=== PATIENT | female | born 1985 | race Caucasian/White ===

== ENCOUNTER 2016-10-11 16:29 | Observation (INO) ==
[2016-10-11] MEDS ORDERED: Vancomycin 1,000 MG in D5% in Water 250 ML IVPB ONE (17:32)
[2016-10-11] MEDS ORDERED: Ciprofloxacin/Dex *EAR* Susp 7.5 ML BOTTLE LEFT EAR ONE (17:36)
[2016-10-11] MEDS ORDERED: CloNIDine Patch 0.1 MG PATCH (WEEKLY) TD SCH (17:45)
[2016-10-11 18:44] LABS: Basophils % 0.5 %; Eosinophils # 0.1 K/mcL (0.0-0.6); Eosinophils % 1.3 %; Hematocrit 35.6 % (35.3-44.9); Hemoglobin 11.5 g/dL (11.5-15.4); Immature Granulocytes % 0.3 % (0-4); Lymphocytes # 2.7 K/mcL (0.6-4.6); Lymphocytes % 34.3 %; Mean Corpuscular HGB Conc 32.3 g/dL (31.6-35.5); Mean Corpuscular Hemoglobin 27.6 pg (28.0-33.3); Mean Corpuscular Volume 85.4 fL (83.0-100.0); Mean Platelet Volume 8.9 fL (9.4-12.4); Monocytes # 0.5 K/mcL (0.0-1.3); Monocytes % 6.6 %; Neutrophils # 4.6 K/mcL (1.6-8.9); Platelet Count 298 K/mcL (140-400); Red Blood Count 4.17 M/mcL (3.82-4.97); Red Cell Distribution Width 14.5 % (11.5-14.5)
[2016-10-11 18:59] LABS: Alanine Aminotransferase 16 Units/L (0-55); Albumin 2.9 g/dL (3.5-5.0); Albumin/Globulin Ratio 0.6 (1.1-2.2); Alkaline Phosphatase 77 Units/L (38-126); Aspartate Amino Transferase 17 Units/L (5-34); BUN/Creatinine Ratio 15 (6-26); Bilirubin,Total 0.4 mg/dL (0.2-1.2); Blood Urea Nitrogen 12 mg/dL (7-20); Calcium 9.2 mg/dL (8.6-10.8); Carbon Dioxide 27 mEq/L (19-29); Chloride 101 mEq/L (98-109); Glucose 106 mg/dL (70-99); Osmolality,Calculated 284 (280-300); Potassium 3.5 mEq/L (3.5-4.5); Sodium 137 mEq/L (136-145); Total Protein 7.9 g/dL (6.0-8.3); eGFR For African Americans > 60 (> 60); eGFR For Non-African Americans > 60 (> 60)
[2016-10-11 19:09] LABS: Large Platelets Present (Not Present); Platelet Estimate Normal (Normal); Reactive Lymphocytes Present (Not Present)
[2016-10-11] MEDS ORDERED: Haloperidol Lactate 5 MG/ML VIAL IVP ONE (19:22)
[2016-10-11] MEDS ORDERED: *HR* Ketamine 500 MG/5 ML MDV IVP ONE (20:04)
[2016-10-11] MEDS ORDERED: Ziprasidone injection 20 MG/ML VIAL IM ONE (20:07)
[2016-10-11] MEDS ORDERED: Ketamine *HR* 500 MG/10 ML MDV IVP ONE (20:30)
[2016-10-11] MEDS ORDERED: Piperacillin/Tazobactam 4.5 GM in D5% in Water (Mini-Bag+) 100 ML IVPB ONE (21:06)
[2016-10-11] MEDS ORDERED: 0.9 % Sodium Chloride 1,000 ML IVC SCH ×2 (21:15→22:00)
[2016-10-11] MEDS ORDERED: Naloxone 0.4 MG/ML INJ IVP PRN (21:56)
[2016-10-11] MEDS ORDERED: Mag Hydrox/Al Hydrox/Simeth 30 ML UDC PO PRN (21:56)
[2016-10-11] MEDS ORDERED: Acetaminophen 325 MG TABLET PO PRN (21:56)
[2016-10-11] MEDS ORDERED: traZODone 50 MG TABLET PO SCH (22:00)
[2016-10-11] MEDS ORDERED: Vancomycin 750 MG in D5% in Water 250 ML IVPB SCH (22:00)
[2016-10-11] MEDS ORDERED: Ondansetron ODT 4 MG TAB.RAPDIS SL PRN (22:02)
[2016-10-11] MEDS ORDERED: *HR* LORazepam 1 MG TABLET PO PRN (22:11)
--- NOTE | 2016-10-11 22:35 | Emergency Department Note ---
Disposition Clinical Impression: Drug abuse Cellulitis Qualifiers: Site of cellulitis: buttock Qualified Code(s): L03.317 - Cellulitis of buttock Disposition: Admitted As Inpatient General Adult HPI - General Chief complaint: ED Wound/Laceration Stated complaint: Abscess on buttocks Time Seen by Provider: 10/11/16 16:57 Source: patient Limitations: no limitations Nursing Notes Reviewed: Yes Vital Signs Reviewed: Yes - History of Present Illness HPI Narrative: This is a 30-year-old female with a history of significant IV drug abuse who presents with concern for inner thigh abscess. She has multiple track rodriguez on her arm. She has secondary complaints of falling several days ago resulting in multiple abrasions to the buttocks as well as extremities. She appears anxious , multiple track rodriguez. Denies fever, chills. She is actually squeezing a small area of folliculitis on her suprapubic area when I walked into the room. She admits having abscess in the past. She provided a history of taking Suboxone from her father and attempt to get clean as well as using Phenergan from her . Pain Scale: 5 - Related Data Home Medications Medication Instructions Recorded Confirmed Phenytoin ER [Dilantin ER] 100 mg PO TID 10/11/16 10/11/16 Trazodone HCl 300 mg PO HS 10/11/16 10/11/16 Allergies Allergy/AdvReac Type Severity Reaction Status Date / Time tramadol Allergy Swelling Verified 10/09/16 05:34 of Lip/Tongue/Throat naproxen AdvReac See Verified 10/09/16 05:37 Comments All systems ED: reviewed and negative except as stated. Past Medical History - Past Medical History Medical history: Reports: no medical history Surgical history: Reports: no surgical history Psychiatric history: Reports: no psych history VEGETABLE PICKER history: Reports: bilateral tubal ligation - Social History Smoking Status: Current every day smoker Alcohol use: Reports: none Drug use: Reports: marijuana Physical Exam - General Limitations: no limitations General appearance: alert, in no apparent distress - Eye Eye exam: Present: normal appearance - ENT ENT exam: normal exam, normal oropharynx - Neck Neck exam: Present: normal inspection, full ROM - Chest Chest inspection: Present: normal inspection - Respiratory Respiratory exam: Present: normal lung sounds bilaterally - Cardiovascular Cardiovascular exam: Present: regular rate, normal rhythm - Abdominal Exam Abdominal exam: Present: soft, Non-Tender - Back Exam Back exam: Present: normal inspection - Neurological Exam Neurological exam: Present: alert, oriented X3, CN II-XII intact - Psychiatric Psychiatric exam: Present: normal affect, normal mood - Skin Skin exam: Present: warm, dry - Other Other exam information: Multiple abrasions to the buttocks bilaterally. Tract rodriguez on the arms laterally. There are scratch rodriguez to the left and right inner upper extremities. There is abrasions on the knees bilaterally. There is abrasions on the elbows bilaterally. There is a rather large indurated area in the perineum. Course Vital Signs Temperature 98.1 F 10/11/16 16:30 Pulse Rate 78 10/11/16 16:30 Respiratory Rate 16 10/11/16 16:30 Blood Pressure 119/73 10/11/16 16:30 O2 Sat by Pulse Oximetry 97 10/11/16 16:30 Temperature 98.1 F 10/11/16 16:30 Pulse Rate 72 10/11/16 21:00 Respiratory Rate 16 10/11/16 21:00 Blood Pressure 115/78 10/11/16 21:00 O2 Sat by Pulse Oximetry 98 10/11/16 21:00 Oxygen Delivery Oxygen Delivery Room Air Medical Decision Making - MDM Narrative Medical decision making narrative: This is a area of cellulitis in the perineum. There is significant induration but no fluctuance. I did order a CT scan but ultimately she refused IV contrast. There is no evidence of drainable abscess. Vancomycin and Zosyn were initiated. Cultures were sent. The patient initially told me that she was in remission from narcotic dependency but then later told me that she was using IV heroin. She became anxious, agitated, was irritable and abusive towards nursing staff. She wanted to leave and get a cigarette. I told her if she left she would be discharged with removal of her intravenous as she was a high risk for exiting the emergency department with intravenous access in place. I did attempt to try to calm her nerves and suppress her feelings of opiate dependency with both clonidine and Phenergan however this was unsuccessful. After discussion with the patient she was given Haldol but this did not seem to improve her symptoms of anxiety and agitation. I then gave her Geodon which again did not seem to suppress her feelings of anxiety. I then provided ketamine which improved her pain and anxiety. She will be admitted to the hospital for evaluation of cellulitis. It is likely that she will elope at some point given her overwhelming anxiety here in the emergency department. She is currently agreeable to admission. Her wounds are cleansed with chlorhexidine. Bactroban was placed. She had secondary findings of acute otitis externa of the left ear. A wick was placed by the resident with my supervision. This was filled with Ciprodex. She will need continuation of Ciprodex treatment as an inpatient. - Medical Records Medical records reviewed: Yes I reviewed the patient's medical records. - Lab Data Lab results reviewed: Yes I reviewed the patient's lab results. Result diagrams: 10/11/16 18:20 10/11/16 18:20 Lab Results 10/11/16 10/11/16 10/11/16 Range/Units 18:20 18:20 18:20 WBC 8.0 (4.3-11.1) K/mcL RBC 4.17 (3.82-4.97) M/mcL Hgb 11.5 (11.5-15.4) g/dL Hct 35.6 (35.3-44.9) % MCV 85.4 (83.0-100.0) fL MCH 27.6 L (28.0-33.3) pg MCHC 32.3 (31.6-35.5) g/dL RDW 14.5 (11.5-14.5) % Plt Count 298 (140-400) K/mcL MPV 8.9 L (9.4-12.4) fL Immature Gran % 0.3 (0-4) % Seg Neutrophils % 57.0 % Lymphocytes % 34.3 % Monocytes % 6.6 % Eosinophils % 1.3 % Basophils % 0.5 % Neutrophils # 4.6 (1.6-8.9) K/mcL Lymphocytes # 2.7 (0.6-4.6) K/mcL Monocytes # 0.5 (0.0-1.3) K/mcL Eosinophils # 0.1 (0.0-0.6) K/mcL Basophils # 0.0 (0.0-0.2) K/mcL Reactive Lymphocytes Present A (Not Present) Platelet Estimate Normal (Normal) Large Platelets Present A (Not Present) Sodium 137 (136-145) mEq/L Potassium 3.5 (3.5-4.5) mEq/L Chloride 101 (98-109) mEq/L Carbon Dioxide 27 (19-29) mEq/L BUN 12 (7-20) mg/dL Creatinine 0.81 (0.57-1.11) mg/dL Est GFR ( Amer) > 60 (> 60) Est GFR (Non-Af Amer) > 60 (> 60) BUN/Creatinine Ratio 15 (6-26) Glucose 106 H (70-99) mg/dL Calculated Osmolality 284 (280-300) Lactic Acid (0.5-2.2) mmol/L Calcium 9.2 (8.6-10.8) mg/dL Total Bilirubin 0.4 (0.2-1.2) mg/dL AST 17 (5-34) Units/L ALT 16 (0-55) Units/L Alkaline Phosphatase 77 (38-126) Units/L Serum Total Protein 7.9 (6.0-8.3) g/dL Albumin 2.9 L (3.5-5.0) g/dL Globulin 5.0 H (2.4-3.5) g/dL Albumin/Globulin Ratio 0.6 L (1.1-2.2) Serum , Qual Negative (Negative) 10/11/16 Range/Units 21:20 WBC (4.3-11.1) K/mcL RBC (3.82-4.97) M/mcL Hgb (11.5-15.4) g/dL Hct (35.3-44.9) % MCV (83.0-100.0) fL MCH (28.0-33.3) pg MCHC (31.6-35.5) g/dL RDW (11.5-14.5) % Plt Count (140-400) K/mcL MPV (9.4-12.4) fL Immature Gran % (0-4) % Seg Neutrophils % % Lymphocytes % % Monocytes % % Eosinophils % % Basophils % % Neutrophils # (1.6-8.9) K/mcL Lymphocytes # (0.6-4.6) K/mcL Monocytes # (0.0-1.3) K/mcL Eosinophils # (0.0-0.6) K/mcL Basophils # (0.0-0.2) K/mcL Reactive Lymphocytes (Not Present) Platelet Estimate (Normal) Large Platelets (Not Present) Sodium (136-145) mEq/L Potassium (3.5-4.5) mEq/L Chloride (98-109) mEq/L Carbon Dioxide (19-29) mEq/L BUN (7-20) mg/dL Creatinine (0.57-1.11) mg/dL Est GFR ( Amer) (> 60) Est GFR (Non-Af Amer) (> 60) BUN/Creatinine Ratio (6-26) Glucose (70-99) mg/dL Calculated Osmolality (280-300) Lactic Acid 0.7 (0.5-2.2) mmol/L Calcium (8.6-10.8) mg/dL Total Bilirubin (0.2-1.2) mg/dL AST (5-34) Units/L ALT (0-55) Units/L Alkaline Phosphatase (38-126) Units/L Serum Total Protein (6.0-8.3) g/dL Albumin (3.5-5.0) g/dL Globulin (2.4-3.5) g/dL Albumin/Globulin Ratio (1.1-2.2) Serum , Qual (Negative)
--- NOTE | 2016-10-11 22:46 | Internal Med History&Physical ---
Date of Encounter: 10/11/16 Time of Encounter: 22:14 Assessment and Plan (1) Cellulitis Current visit: Yes Status: Acute Patient presents with "knot" on right buttock, worsening over the last month. She also reports chills, sweats and nausea. She is afebrile and WBC is normal at 8.0. Pelvis CT shows cellulitis of right greater than left gluteal region, no evidence of abscess, mild inflammatory phlegmon in subcutaneous soft tissue. IV fluids 0.9NS at 75mL/hr Zosyn and Vancomycin initiated in ED, continue zosyn and doxycycline. tylenol and toradol prn for pain. Qualifiers: Site of cellulitis: buttock Qualified Code(s): L03.317 - Cellulitis of buttock (2) Heroin abuse Current visit: Yes Status: Acute Patient reports using heroin today. She became agitated and anxious in the ED, likely related to withdrawal, and was given haldol, geodon, and ketamine. She was calm on my assessment. IV fluids 0.9NS at 75mL/hr Zofran PRN for nausea Ativan PRN for anxiety and agitation No narcotics ordered. Narcan ordered PRN [facility] consultation (3) Seizure disorder Current visit: Yes Status: Acute Patient with history of seizure disorder. Continue home dose of dilantin. (4) Otitis externa Current visit: Yes Status: Acute Patient with left otitis externa. Ciprodex drops. Qualifiers: Otitis externa type: unspecified type Laterality: left Chronicity: acute Qualified Code(s): H60.502 - Unspecified acute noninfective otitis externa, left ear (5) Smoker Current visit: Yes Status: Acute Patient reports she smokes 1.5 PPD, not ready to quit. Nicotine patch ordered. (6) DVT prophylaxis Current visit: Yes Status: Acute Up ad huey anti-embolic stockings lovenox 40mg sQ daily. Internal Medicine - H&P: HPI Chief complaint: sore on buttocks Admitted From: Emergency Dept Plans for Post Hospital Care: Home History of present illness: Ms. Alas is a 30 year old female with opioid and heroin addiction, seizure disorder, acid reflux presented to the emergency department today with complaints of a sore or "knot" on her buttocks. She reports it has been sore for about 1 month and getting worse. She reports chills, sweats and nausea for about a week. She denies any headache, lightheadedness, chest pain, palpitations, shortness of breath. She denies any dysuria, diarrhea, abnormal vaginal discharge, or pain during intercourse. She reports she uses heroin and last use was today. ER reports she became very agitated and anxious and she had to be given haldol, geodon, ketamine and clonidine in order to calm down, likely related to withdrawal. Evaluation in the ER included a pelvis CT which showed cellulitis of the right greater than left gluteal region. No evidence of abscess. Mild inflammatory phlegmon in the subcutaneous soft tissue. WBC normal at 8.0. Patient afebrile and normal vitals. Blood cultures were sent and patient started on vanc and zosyn. On exam, patient alert and oriented in no distress. Heart had regular rate and rhythm, lungs clear to auscultation bilaterally. On her right gluteal area, she had some erythema and a small 1cm sore. She had scrapes with scabs all over her body. Past Med Surg Social Fam HX - Past Medical History Medical history: seizures Psychiatric history: no psych history - Past Surgical History Surgical History: no surgical history, other (tubal ligation, deviated septum) - Social History Smoking Status: Current every day smoker Packs per day: 1.5 Alcohol use: none Drug use: marijuana, IVDU - Family History Mother Living Status: Age at : 47 Internal Medicine - H&P: Meds Phenytoin ER [Dilantin ER] 100 mg PO TID 10/11/16 [History] Trazodone HCl 300 mg PO HS 10/11/16 [History] Allergies tramadol Allergy (Verified 10/09/16 05:34) Swelling of Lip/Tongue/Throat naproxen Adverse Reaction (Verified 10/09/16 05:37) See Comments states increases HR All Systems PM: A 10-system review of systems was performed and is negative for pertinent findings except as documented above in the HPI. - Constitutional Constitutional: chills, excessive sweating, no fever(s), no night sweats - EENT Eyes: no change in vision, no discharge, no pain, no photophobia Ears: no ear discharge, no ear pain, no tinnitus Nose, mouth and throat: no dysphagia, no nasal discharge, no neck pain, no sore throat - Cardiovascular Cardiovascular ROS IM: no chest pain, no diaphoresis, no dyspnea, no lightheadedness, no palpitations, no syncope - Respiratory Respiratory: no cough, no dyspnea, no wheezing, no excessive phlegm production - Gastrointestinal Gastrointestinal: nausea, no abdominal pain, no diarrhea, no hematemesis, no hematochezia, no melena, no vomiting - Genitourinary Genitourinary: no change in urinary stream, no dysuria, no flank pain, no hematuria - Musculoskeletal Musculoskeletal ROS IM: no numbness, no tingling - Integumentary Integumentary IM: sores, no rash, no unusual bruising - Neurological Neurological ROS: no confusion, no convulsions, no focal weakness, no numbness, no tingling, no tremor(s) - Hematologic/Lymphatic Hematologic/Lymphatic: no easy bruising - Constitutional Vitals: Temp Pulse Resp BP Pulse Ox 98.1 F 72 16 115/78 98 10/11/16 16:30 10/11/16 21:00 10/11/16 21:00 10/11/16 21:00 10/11/16 21:00 General appearance: Present: A&O X 3, no acute distress - Head Head exam: Present: atraumatic, normocephalic - Eye Eye exam: Present: PERRL, conjuntiva pink, sclera anicteric Pupils: Present: PERRL - Neck Neck exam general surgery: Present: supple, trachea midline. Absent: lymphadenopathy - Respiratory Respiratory exam: Present: CTAB. Absent: accessory muscle use, rales, rhonchi, wheezes - Cardiovascular Cardiovascular exam: Present: RRR, +S1, +S2. Absent: diastolic murmur, gallop, rubs, systolic murmur - GI/Abdominal GI/Abdominal exam: Present: normal bowel sounds, soft, no peritoneal signs. Absent: distended, tenderness - Extremities Exam Extremities exam: Present: warm, radial pulses palpable and symetrical. Absent : calf tenderness, cyanotic, pedal edema - Neurological Exam Neurological exam: Present: CN II-XII intact, oriented X3, no focal deficits. Absent: facial droop, speech deficit - Skin Skin exam: Present: abrasion (diffuse), dry Additional comments: on right gluteal area, erythema and 1cm sore. Internal Med - H&P Results - Labs CBC & Chem 7: 10/11/16 18:20 10/11/16 18:20 Labs: All Lab Results (24 Hours) 10/11/16 10/11/16 10/11/16 Range/Units 18:20 18:20 18:20 WBC 8.0 (4.3-11.1) K/mcL RBC 4.17 (3.82-4.97) M/mcL Hgb 11.5 (11.5-15.4) g/dL Hct 35.6 (35.3-44.9) % MCV 85.4 (83.0-100.0) fL MCH 27.6 L (28.0-33.3) pg MCHC 32.3 (31.6-35.5) g/dL RDW 14.5 (11.5-14.5) % Plt Count 298 (140-400) K/mcL MPV 8.9 L (9.4-12.4) fL Immature Gran % 0.3 (0-4) % Seg Neutrophils % 57.0 % Lymphocytes % 34.3 % Monocytes % 6.6 % Eosinophils % 1.3 % Basophils % 0.5 % Neutrophils # 4.6 (1.6-8.9) K/mcL Lymphocytes # 2.7 (0.6-4.6) K/mcL Monocytes # 0.5 (0.0-1.3) K/mcL Eosinophils # 0.1 (0.0-0.6) K/mcL Basophils # 0.0 (0.0-0.2) K/mcL Reactive Lymphocytes Present A (Not Present) Platelet Estimate Normal (Normal) Large Platelets Present A (Not Present) Sodium 137 (136-145) mEq/L Potassium 3.5 (3.5-4.5) mEq/L Chloride 101 (98-109) mEq/L Carbon Dioxide 27 (19-29) mEq/L BUN 12 (7-20) mg/dL Creatinine 0.81 (0.57-1.11) mg/dL Est GFR ( Amer) > 60 (> 60) Est GFR (Non-Af Amer) > 60 (> 60) BUN/Creatinine Ratio 15 (6-26) Glucose 106 H (70-99) mg/dL Calculated Osmolality 284 (280-300) Lactic Acid (0.5-2.2) mmol/L Calcium 9.2 (8.6-10.8) mg/dL Total Bilirubin 0.4 (0.2-1.2) mg/dL AST 17 (5-34) Units/L ALT 16 (0-55) Units/L Alkaline Phosphatase 77 (38-126) Units/L Serum Total Protein 7.9 (6.0-8.3) g/dL Albumin 2.9 L (3.5-5.0) g/dL Globulin 5.0 H (2.4-3.5) g/dL Albumin/Globulin Ratio 0.6 L (1.1-2.2) Serum , Qual Negative (Negative) 10/11/16 Range/Units 21:20 WBC (4.3-11.1) K/mcL RBC (3.82-4.97) M/mcL Hgb (11.5-15.4) g/dL Hct (35.3-44.9) % MCV (83.0-100.0) fL MCH (28.0-33.3) pg MCHC (31.6-35.5) g/dL RDW (11.5-14.5) % Plt Count (140-400) K/mcL MPV (9.4-12.4) fL Immature Gran % (0-4) % Seg Neutrophils % % Lymphocytes % % Monocytes % % Eosinophils % % Basophils % % Neutrophils # (1.6-8.9) K/mcL Lymphocytes # (0.6-4.6) K/mcL Monocytes # (0.0-1.3) K/mcL Eosinophils # (0.0-0.6) K/mcL Basophils # (0.0-0.2) K/mcL Reactive Lymphocytes (Not Present) Platelet Estimate (Normal) Large Platelets (Not Present) Sodium (136-145) mEq/L Potassium (3.5-4.5) mEq/L Chloride (98-109) mEq/L Carbon Dioxide (19-29) mEq/L BUN (7-20) mg/dL Creatinine (0.57-1.11) mg/dL Est GFR ( Amer) (> 60) Est GFR (Non-Af Amer) (> 60) BUN/Creatinine Ratio (6-26) Glucose (70-99) mg/dL Calculated Osmolality (280-300) Lactic Acid 0.7 (0.5-2.2) mmol/L Calcium (8.6-10.8) mg/dL Total Bilirubin (0.2-1.2) mg/dL AST (5-34) Units/L ALT (0-55) Units/L Alkaline Phosphatase (38-126) Units/L Serum Total Protein (6.0-8.3) g/dL Albumin (3.5-5.0) g/dL Globulin (2.4-3.5) g/dL Albumin/Globulin Ratio (1.1-2.2) Serum , Qual (Negative) - Diagnostic Studies CT scan - pelvis Additional comments: Pelvis CT 10/11/16 17:32 IMPRESSION: 1. Cellulitis of the right greater than left gluteal region. 2. No evidence of abscess. Mild inflammatory phlegmon in the subcutaneous soft tissue. 3. Incidental left ovarian cyst. Recommendations below. D/ / Steffen Burr MD / Steffen Burr MD Interpreting Provider: Steffen Burr MD
[2016-10-11] MEDS ORDERED: Ketorolac 30 MG/ML VIAL IVP PRN (22:55)
--- NOTE | 2016-10-11 23:06 | Event Note ---
Date of Encounter: 10/11/16 Time of Encounter: 22:00 Patient evaluated along with Nurse Practitioner and I agree with detailed assessment and plan per MECHANICAL MANUFACTURING ENGINEER notes; 30 year old female with h/o- IVDU, seizure disorder, is admitted with c/o- right gluteal pain, subjective chills and feeling ill. She is noted to have a small phlegmon/no acute abscess in B/L gluteal areas, right>left on CT pelvis. She received IV Vancomycin and Zosyn in the ER along with one time doses of Ketamine, Ziprasidone, Ativan to calm her down as she reportedly wanted to use the restroom to shoot IV drugs and/or smoke. Patient seen and examined at bedside. Alert and oriented but not interested in providing any history, uncooperative in general, to physical examination. Chest- S1, S2 heard, RRR, lungs are clear to auscultation She only let me inspect her right gluteal area, with small 1-2cm erythematous area, tender; no fluctuant swelling; Noted to have multiple track rodriguez all over her body. B/L gluteal cellulitis/phlegmon- Patient has almost 1-month h/o- symptoms, worsening for the last few days. No documented fever, tachycardia, hypotension; lactic acid normal. Continue IV hydration and IV antibiotics- Zosyn and Doxycycline. Supportive care. Pain control with PRN Tylenol and IV Toradol; avoid narcotics. IV drug abuse- has not provided urine sample for urine drug screen. Supportive care with PRN Zofran, Ativan and Tylenol. director of home health services consult for safe discharge.
[2016-10-11] MEDS: Nicotine 21 MG PATCH.TD24 TD SCH (23:55)
[2016-10-12 04:29] LABS: Basophils % 0.3 %; Eosinophils # 0.1 K/mcL (0.0-0.6); Eosinophils % 1.5 %; Hematocrit 34.1 % (35.3-44.9); Hemoglobin 10.9 g/dL (11.5-15.4); Immature Granulocytes % 0.3 % (0-4); Lymphocytes # 2.5 K/mcL (0.6-4.6); Lymphocytes % 34.8 %; Mean Corpuscular Hemoglobin 27.3 pg (28.0-33.3); Mean Corpuscular Volume 85.5 fL (83.0-100.0); Mean Platelet Volume 8.8 fL (9.4-12.4); Monocytes # 0.5 K/mcL (0.0-1.3); Monocytes % 7.2 %; Neutrophils # 4.1 K/mcL (1.6-8.9); Platelet Count 285 K/mcL (140-400); Red Blood Count 3.99 M/mcL (3.82-4.97); Red Cell Distribution Width 14.4 % (11.5-14.5); Segmented Neutrophils % 55.9 %
[2016-10-12 04:45] LABS: BUN/Creatinine Ratio 9 (6-26); Blood Urea Nitrogen 7 mg/dL (7-20); Calcium 8.6 mg/dL (8.6-10.8); Carbon Dioxide 23 mEq/L (19-29); Chloride 111 mEq/L (98-109); Glucose 98 mg/dL (70-99); Osmolality,Calculated 292 (280-300); Potassium 3.9 mEq/L (3.5-4.5); Sodium 142 mEq/L (136-145); eGFR For African Americans > 60 (> 60); eGFR For Non-African Americans > 60 (> 60)
[2016-10-12 05:07] LABS: Reactive Lymphocytes Present (Not Present)
[2016-10-12 05:08] LABS: Platelet Clumps Few (Not Present)
[2016-10-12] MEDS ORDERED: Vancomycin 1,000 MG in D5% in Water 250 ML IVPB SCH (06:00)
[2016-10-12] MEDS ORDERED: Doxycycline 100 MG in 0.9 % Sodium Chloride Mini Bag 100 ML IVPB SCH (06:00)
[2016-10-12] MEDS ORDERED: Piperacillin/Tazobactam 3.375 GM in D5% in Water (Mini-Bag+) 100 ML IVPB SCH (06:00)
[2016-10-12] MEDS: *HR* Enoxaparin 40 MG/0.4 ML SYRINGE SQ SCH ×2 (06:07→06:40)
[2016-10-12 06:34] VITALS: BP 104/63
[2016-10-12] MEDS ORDERED: Famotidine 20 MG TABLET PO SCH (07:30)
--- NOTE | 2016-10-12 08:34 | Discharge Summary ---
Date of Encounter: 10/12/16 Time of Encounter: 08:34 - Discharge Diagnosis (1) Phlegmonous cellulitis Priority: Primary Status: Acute (2) Heroin abuse Priority: Secondary Status: Chronic (3) Seizure disorder Priority: Secondary Status: Chronic (4) Smoker Priority: Secondary Status: Chronic (5) Otitis externa Priority: Primary Status: Acute Qualifiers: Otitis externa type: unspecified type Laterality: left Chronicity: acute Qualified Code(s): H60.502 - Unspecified acute noninfective otitis externa, left ear - Discharge Medications Prescriptions: Ciprofloxacin/Dex *EAR* Susp [Ciprodex *EAR* Susp] 4 drop LEFT EAR BID #1 bottle Clindamycin HCl [Cleocin HCl] 300 mg PO TID #21 cap Home Medications: Phenytoin ER [Dilantin ER] 100 mg PO TID 10/11/16 [History] Trazodone HCl 300 mg PO HS 10/11/16 [History] Ciprofloxacin/Dex *EAR* Susp [Ciprodex *EAR* Susp] 4 drop LEFT EAR BID #1 bottle 10/12/16 [Rx] Clindamycin HCl [Cleocin HCl] 300 mg PO TID #21 cap 10/12/16 [Rx] Allergies/Adverse Reactions: Allergies tramadol Allergy (Verified 10/09/16 05:34) Swelling of Lip/Tongue/Throat naproxen Adverse Reaction (Verified 10/09/16 05:37) See Comments states increases HR Date of admission: 10/12/16 06:49 Primary care physician: PCP RAYA Discharging clinician: Giovanni Gruber Anticipated date of discharge: 10/12/16 - Patient Status Disposition: Home, Self-Care Condition: Fair Functional capacity at discharge: independent ambulation Overall status at discharge: patient is progressing back to baseline - Discharge Instructions Follow Up With: RAYA,PCP [Primary Care Provider] - Forms: ED Satisfaction Letter Additional Instructions: PLEASE MAKE APPOINTMENT WITH RESIDENT CLINIC FOR FOLLOW UP IN ONE WEEK - Diet and Activity Activity: resume usual activities as tolerated Diet: regular diet Interval History: 30 year old female with opioid and heroin addiction, seizure disorder, acid reflux presented to the emergency department 10/11 with complaints of a sore or "knot" on her buttocks. She reports it has been sore for about 1 month and getting worse. She reported chills, sweats and nausea for about a week. She denied any headache, lightheadedness, chest pain, palpitations, shortness of breath. She denied any dysuria, diarrhea, abnormal vaginal discharge, or pain during intercourse. She reported she uses heroin daily, IV pushes without attention to use of clean or dirty needles. She became very agitated and anxious while in the ER, and she had to be given haldol, geodon, ketamine and clonidine in order to calm down, likely related to withdrawal. Evaluation in the ER included a pelvis CT which showed cellulitis of the right greater than left gluteal region. No evidence of abscess. Mild inflammatory phlegmon in the subcutaneous soft tissue. WBC normal at 8.0. Patient afebrile and normal vitals. Blood cultures were sent and patient started on vanc and zosyn. On exam, patient alert and oriented in no distress. Heart had regular rate and rhythm, lungs clear to auscultation bilaterally. On her right gluteal area, she had some erythema and a small 1cm sore. She had scrapes with scabs all over her body. She was admitted to the hospital for further management Hospital course: Patient was seen and evaluated at the bedside with her boyfriend She is very aloof without providing much history or participating in conversation. Eventually, she decided to talk to me. She denies feelings of withdrawal at this time and asked to be discharged home She is counselled about the health consequences of illicit drug use including but not limited to infections, sepsis, hepatitis, endocarditis, respiratory failure and cardiac arrest She verbalized understanding of this but states categorically and repetitively that she does not want help. She plans to quite "when shes ready". Boyfriend at bedside denies drug use, and reports patient has never wanted help. Patient lives with her father and visits boyfriend from time to time She declined NRT at this time, and also wishes to self quit She does not want to talk to a family welfare social work professor, nor wants resources for in- patient rehab and detox She is afebrile, no leukocytosis, her right butt cellulitis is mild, without abscesses. She has no symptoms, signs of sepsis or peripheral stigmata of endocarditis. She will be discharged on oral clindamycin for at least 7 days She was able to verbalize understanding of plan of care Follow up with PCP Time spent discussing smoking cessation with patient: 3 to 10 minutes (4 minutes spent on education on tobacco cessation) - Time Spent with Patient Total time spent providing and/or coordinating discharge services: Less than 30 minutes - Constitutional Vitals: Temp Pulse Resp BP Pulse Ox 97.9 F 71 14 104/63 95 10/12/16 06:26 10/12/16 06:26 10/12/16 06:26 10/12/16 06:26 10/12/16 06:26 General appearance: Present: disheveled, A&O X 3, no acute distress. Absent: pleasant - Head Head exam: Present: atraumatic, normocephalic - Eye Eye exam: Present: PERRL, conjuntiva pink, sclera anicteric Pupils: Present: PERRL - Neck Neck exam general surgery: Present: supple, trachea midline. Absent: lymphadenopathy - Respiratory Respiratory exam: Present: CTAB. Absent: accessory muscle use, rales, rhonchi, wheezes - Cardiovascular Cardiovascular exam: Present: RRR, +S1, +S2. Absent: diastolic murmur, gallop, rubs, systolic murmur - GI/Abdominal GI/Abdominal exam: Present: normal bowel sounds, soft, no peritoneal signs. Absent: distended, tenderness - Additional comments: Right butt inferior ~3X3cm cellulitis with slight phlegmon, no fluctuancy, no drainage or abscesses - Extremities Exam Extremities exam: Present: warm, radial pulses palpable and symetrical. Absent : calf tenderness, cyanotic, pedal edema - Neurological Exam Neurological exam: Present: alert, CN II-XII intact, oriented X3, no focal deficits. Absent: pronater drift, facial droop, speech deficit - Skin Skin exam: Present: dry, excoriation Additional comments: Multiple track rodriguez in lower and upper extremities
[2016-10-12] MEDS ORDERED: Ciprofloxacin/Dex *EAR* Susp 7.5 ML BOTTLE LEFT EAR SCH (09:00)
[2016-10-12] MEDS: Nicotine 21 MG PATCH.TD24 TD SCH (09:11)
== END 2016-10-12 10:15 | disposition home or self-care (01) | DRG 383 ==
LOC: 3ANU 16:29 → EMEROO 16:29 → 3ANU 23:20
PROVIDERS: ADMIT Internal Medicine; ATTEND Nurse Practitioner Family